=== PATIENT | male | born 1970 | race Caucasian/White ===

== ENCOUNTER 2023-10-11 17:06 | Emergency (ER) | payer BC, SELFPAY ==
[2023-10-11] VITALS (23 sets, daily range): BP systolic 106–156; BP diastolic 65–106; PULSE 65–100; TEMP 36.7; O2SAT 95–98; BMI 32.5
--- NOTE | 2023-10-11 17:34 | ECG_ITS ---
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
--- NOTE | 2023-10-11 17:36 | ED.ABDPAIN1 ---
HPI - Abdominal Pain General Chief Complaint: Abdominal Pain Stated Complaint: ABD PAIN Time Seen by Provider: 10/11/23 17:30 Source: patient Mode of arrival: walk-in History of Present Illness HPI narrative: Patient presenting with a 24 hours history of right-sided abdominal pain not radiating associated with no vomiting in the moment he did have some nausea at home he also mentioned that he had some bloody stool but he thinks that mostly secondary to his hemorrhoids and he had constipation yesterday although he have diarrhea today. The patient have no fever or chills although he is feeling a little sweaty right now, and the patient denies any chest pain any back pain and any radiation of the pain that he is having The patient have a history of kidney stone that he was evaluated for a few years ago. Related Data Allergies Allergy/AdvReac Type Severity Reaction Status Date / Time No Known Drug Allergies Allergy Verified 10/11/23 17:15 Review of Systems ROS Status of ROS 10 or more systems reviewed and unremarkable except as noted in history and below Exam Narrative Exam Narrative: Nurses notes and vital signs reviewed and patient is not hypoxic. General: Well-appearing and in no apparent distress. Skin: Warm, dry, no pallor noted. No rash. Head: Normocephalic, atraumatic. Neck: Supple, non-tender. Eye: Pupils are equal, round and EOMI. No scleral icterus. Ears, Nose, Mouth, and Throat: TM are clear, no nasal mucosal hypertrophy. Oral mucosa is moist, no posterior oropharynx erythema, uvula is mid-line Cardiovascular: Regular Rate and Rhythm without murmur, gallop or rub. Respiratory: No accessory muscle use or respiratory distress. Lungs are clear to auscultation, no wheezing, rales or rhonchi Chest Wall: no tenderness Back: No midline thoracic or lumbar vertebral tenderness. No CVA tenderness Musculoskeletal: normal ROM, no calf or popliteal tenderness, no lower extremity edema/swelling GI: The abdomen is distended and the patient have tenderness on the right side of the abdomen upper and lower with no positive [place] Neurological: A&O x4. No cranial nerve dysfunction observed. No truncal ataxia. Moves all extremities. Sensation intact. Psychiatric: Cooperative and interactive. Normal mood and affect. Constitutional Vital Signs, click to edit/add: Last Vital Signs Temp 98.0 F 10/11/23 17:12 Pulse 65 10/11/23 18:20 Resp 20 10/11/23 18:15 BP 118/73 10/11/23 18:15 Pulse Ox 96 10/11/23 18:20 O2 Del Method Room Air 10/11/23 17:12 Course Vital Signs Vital signs: Vital Signs Temperature 98.0 F 10/11/23 17:12 Pulse Rate 84 10/11/23 17:12 Respiratory Rate 22 H 10/11/23 17:12 Blood Pressure 152/106 H 10/11/23 17:12 Pulse Oximetry 96 10/11/23 17:12 Oxygen Delivery Method Room Air 10/11/23 17:12 Temperature 98.0 F 10/11/23 17:12 Pulse Rate 65 10/11/23 18:20 Respiratory Rate 20 10/11/23 18:15 Blood Pressure 118/73 10/11/23 18:15 Pulse Oximetry 96 10/11/23 18:20 Oxygen Delivery Method Room Air 10/11/23 17:12 MDM - Abdominal Pain MDM Narrative Medical decision making narrative: The patient EKG showing sinus rhythm no ST elevation or depression CBC and chemistry showed no acute pathology with a negative troponin CAT scan of the abdomen is pending the patient was treated with a Toradol and Zofran as well as Pepcid The patient care will be transferred to Dr. Dia for evaluation of CT abd and UA Lab Data Labs: Lab Results 10/11/23 Range/Units 17:32 WBC 8.8 (4.0-11.0) 10^3/uL RBC 5.06 (4.70-6.10) 10^6/uL Hgb 15.1 (14.0-18.0) g/dL Hct 44.7 (42.0-54.0) % MCV 88.3 (80.0-94.0) fL MCH 29.8 (25.9-34.0) pg MCHC 33.8 (29.9-35.2) g/dL RDW 12.7 (11.0-15.0) % Plt Count 250 (150-450) 10^3/uL MPV 11.0 (9.5-13.5) fL Neut % (Auto) 61.1 (43.0-75.0) % Lymph % (Auto) 28.2 (20.5-60.0) % [place]ukes % (Auto) 8.1 (1.7-12.0) % Eos % (Auto) 1.8 (0.9-7.0) % Baso % (Auto) 0.6 (0.2-2.0) % Neut # (Auto) 5.4 (1.4-6.5) 10^3/uL Lymph # (Auto) 2.5 (1.2-3.8) 10^3/uL Dukes # (Auto) 0.7 (0.3-0.8) 10^3/uL Eos # (Auto) 0.2 (0.0-0.7) 10^3/uL Baso # (Auto) 0.1 (0.0-0.1) 10^3/uL Abs Immat Gran (auto) 0.02 (0.00-0.03) 10^3/uL Imm/Tot Granulo (auto) 0.2 (0.0-0.5) % PT 10.7 (9.0-11.6) sec INR 1.01 Sodium 140 (136-145) mmol/L Potassium 4.3 (3.5-5.1) mmol/L Chloride 103 (98-107) mmol/L Carbon Dioxide 27.6 (21.0-32.0) mmol/L Anion Gap 13.7 BUN 19.0 H (7.0-18.0) mg/dL Creatinine 1.21 (0.70-1.30) mg/dL Est GFR ( Amer) >60 (>=60) Est GFR (Non-Af Amer) >60 (>=60) BUN/Creatinine Ratio 15.7 Glucose 227 H (74-106) mg/dL Calcium 10.2 H (8.5-10.1) mg/dL Total Bilirubin 0.4 (0.2-1.0) mg/dL AST 32 (15-37) U/L ALT 62 (16-63) U/L Alkaline Phosphatase 91 (46-116) U/L Troponin I High Sens 4.8 (4.0-76.1) pg/mL Total Protein 7.2 (6.4-8.2) g/dL Albumin 4.2 (3.4-5.0) g/dL Globulin 3.0 g/dL Albumin/Globulin Ratio 1.4 Lipase 62.0 (16.0-77.0) U/L Discharge Plan Discharge Patient Disposition: Still a Patient
[2023-10-11 17:43] LABS: Basophils Absolute Auto 0.1 10^3/uL (0.0-0.1); Basophils Percent Auto 0.6 % (0.2-2.0); Eosinophils Absolute Auto 0.2 10^3/uL (0.0-0.7); Eosinophils Percent Auto 1.8 % (0.9-7.0); Hematocrit 44.7 % (42.0-54.0); Hemoglobin 15.1 g/dL (14.0-18.0); Immature Granulocytes Abs Auto 0.02 10^3/uL (0.00-0.03); Immature Granulocytes Pct Auto 0.2 % (0.0-0.5); Lymphocytes Absolute Auto 2.5 10^3/uL (1.2-3.8); Lymphocytes Percent Auto 28.2 % (20.5-60.0); Mean Corpuscular HGB Conc 33.8 g/dL (29.9-35.2); Mean Corpuscular Hemoglobin 29.8 pg (25.9-34.0); Mean Corpuscular Volume 88.3 fL (80.0-94.0); Monocytes Absolute Auto 0.7 10^3/uL (0.3-0.8); Monocytes Percent Auto 8.1 % (1.7-12.0); Neutrophils Absolute Auto 5.4 10^3/uL (1.4-6.5); Neutrophils Percent Auto 61.1 % (43.0-75.0); Platelet Count 250 10^3/uL (150-450); Red Blood Count 5.06 10^6/uL (4.70-6.10); Red Cell Distribution Width 12.7 % (11.0-15.0); White Blood Count 8.8 10^3/uL (4.0-11.0)
[2023-10-11] MEDS: FAMOTIDINE/PF 20 MG/2 ML VIAL IV (17:53)
[2023-10-11] MEDS: KETOROLAC TROMETHAMINE 30 MG/ML VIAL 15 MG IVP (17:53)
[2023-10-11] MEDS: 0.9 % SODIUM CHLORIDE 1,000 ML 1000 ML IV (17:53)
[2023-10-11] MEDS: ONDANSETRON PF 4 MG/2 ML VIAL IV (17:53)
[2023-10-11 18:03] LABS: INR 1.01; Prothrombin Time 10.7 sec (9.0-11.6)
[2023-10-11 18:13] LABS: Alanine Aminotransferase 62 U/L (16-63); Albumin Globulin Ratio 1.4; Albumin Level 4.2 g/dL (3.4-5.0); Alkaline Phosphatase 91 U/L (46-116); Anion Gap 13.7; Aspartate Amino Transferase 32 U/L (15-37); BUN Creatinine Ratio 15.7; Bilirubin Total 0.4 mg/dL (0.2-1.0); Calcium 10.2 mg/dL (8.5-10.1); Carbon Dioxide 27.6 mmol/L (21.0-32.0); Chloride 103 mmol/L (98-107); Estimated GFR (African America >60 (>=60); Estimated GFR (Non-African Ame >60 (>=60); Glucose 227 mg/dL (74-106); Potassium 4.3 mmol/L (3.5-5.1); Sodium 140 mmol/L (136-145); Total Protein 7.2 g/dL (6.4-8.2); Troponin I High Sensitivity 4.8 pg/mL (4.0-76.1)
--- NOTE | 2023-10-11 18:27 | CT_ITS ---
The [address] [address] Patient Name: JUDI NUNEZ MRN: [id number] date: 1970 Sex: M Assigned Patient Location: ER Current Patient Location: Accession/Order Number: [id number] Exam Date: 10/11/2023 19:22 Report Date: 10/11/2023 20:23 At the request of: EDWIGE PERALTA Procedure: CT abdomen pelvis w con CT OF THE ABDOMEN AND PELVIS WITH CONTRAST: 10/11/2023 7:22 PM EDT CLINICAL HISTORY: Right lower quadrant abdominal pain. COMPARISONS: None. TECHNIQUE: Thin section axial CT images were obtained from the lung bases to the pubis symphysis. This CT exam was performed using one or more of the following dose reduction techniques: Automated exposure control, adjustment of the mA and/or kV according to patient size, or use of iterative reconstruction technique. Thin section coronal and sagittal images were reconstructed from the axial data set. All images were reviewed and interpreted. CONTRAST: Intravenous contrast was administered. Type and amount is documented at the local institution. FINDINGS: LUNG BASES: No consolidation or pleural fluid. LIVER: Severe diffuse hepatic steatosis. No liver mass or cyst. Normal portal vein enhancement. GALLBLADDER: Normal. BILIARY TREE: No ductal dilatation. PANCREAS: Normal. SPLEEN: Normal. ADRENALS: Normal. RIGHT KIDNEY AND URETER: There is a acutely retained distal right ureteral calculus measuring 2 mm located approximately 8 mm from distal right ureteral vesicle junction. This is causing mild acute upstream right hydroureteronephrosis. No right perinephric stranding or edema. Slight delayed right nephrogram. Additional nonobstructing calculi lower pole calyces right kidney, 2 or 3 noted each measuring 2 mm. No other calculi in right kidney. No right renal mass or cyst. LEFT KIDNEY AND URETER: No left hydronephrosis. There are several scattered nonobstructing calculi in calyces of left kidney, too noted 1 anterior mid pole calyx measuring 3 mm and 1 lower pole calyx measuring 2 mm. No left ureteral calculi. Tiny parenchymal simple cyst lower pole left kidney measuring 3 to 4 mm. Tiny upper pole 3 to 4 mm simple cyst left kidney measuring 4 mm. Left kidney otherwise negative. Next URINARY BLADDER: Grossly unremarkable. PELVIC STRUCTURES: Unremarkable. BOWEL: No evidence of obstruction, gross mass, or inflammatory change. There is no significant diverticulosis. There is no evidence of diverticulitis. APPENDIX: No active disease with normal appendix. LYMPH NODES: No pathologically enlarged lymph nodes identified. PERITONEUM: No intraperitoneal free air. No free intraperitoneal fluid. MESENTERY: Unremarkable. RETROPERITONEUM: The retroperitoneum is unremarkable. AORTA: Normal in caliber. BODY WALL: No body wall mass. OSSEOUS STRUCTURES: No destructive osseous lesion or displaced fracture. CT/CT abdomen pelvis w con IMPRESSION: 1. Acute right-sided obstructive uropathy with mild right hydronephrosis secondary to small 2 mm distal right ureteral calculus as discussed. 2. Several nonobstructing calculi are seen in calyces of both kidneys as well. See above. 3. Severe hepatic steatosis. Electronically authenticated by: MICHAEL MARQUEZ Date: 10/11/2023 20:23
[2023-10-11 19:24] LABS: Bilirubin Urine NEGATIVE (NEGATIVE); Blood Urine LARGE (NEGATIVE); Clarity Urine CLEAR (CLEAR); Color Urine LT. YELLOW (YELLOW); Glucose Urine UA NEGATIVE (NEGATIVE); Ketones Urine NEGATIVE (NEGATIVE); Leukocyte Esterase Urine NEGATIVE (NEGATIVE); Nitrite Urine NEGATIVE (NEGATIVE); Protein Urine NEGATIVE (NEG/TRACE); Specific Gravity Urine >=1.030 (1.005-1.025); Urobilinogen Urine 0.2 EU/dL (0.2-1.0); pH Urine 5.5 (5.0-9.0)
[2023-10-11 19:26] LABS: Urine Microscopic Indicated YES
[2023-10-11 19:42] LABS: Bacteria Urine NONE SEEN #/HPF (NONE SEEN); Mucus Urine NONE SEEN (NONE SEEN); Squamous Epithelial Cell Urine NONE SEEN #/LPF (NONE/RARE); WBC Urine NONE SEEN #/HPF (NONE SEEN)
[2023-10-11 19:43] LABS: Cast Seen? NONE SEEN #/LPF (NONE SEEN); Crystals Seen? None Seen #/HPF (None Seen); Urine Culture Indicated NO
--- NOTE | 2023-10-11 20:39 | ED_ITS ---
HPI - Abdominal Pain General Chief Complaint: Abdominal Pain Stated Complaint: ABD PAIN Time Seen by Provider: 10/11/23 17:30 Source: patient Mode of arrival: walk-in History of Present Illness HPI narrative: The patient was initially seen by Dr. Silva and signed out to me after discussing the case with her thoroughly. Please see her full history and physical exam. Related Data Previous Rx's ?Medication ?Instructions ?Recorded hydrocodone 5 mg-acetaminophen 325 1 tab PO Q6H PRN pain 5 days #20 10/11/23 mg tablet tabs tamsulosin 0.4 mg capsule (Flomax) 0.4 mg PO DAILY #7 caps 10/11/23 Allergies Allergy/AdvReac Type Severity Reaction Status Date / Time No Known Drug Allergies Allergy Verified 10/11/23 17:15 Exam Constitutional Vital Signs, click to edit/add: Last Vital Signs Temp 98.0 F 10/11/23 17:12 Pulse 87 10/11/23 20:15 Resp 16 10/11/23 18:47 BP 129/88 10/11/23 20:15 Pulse Ox 95 10/11/23 20:15 O2 Del Method Room Air 10/11/23 17:12 Course Vital Signs Vital signs: Vital Signs Temperature 98.0 F 10/11/23 17:12 Pulse Rate 84 10/11/23 17:12 Respiratory Rate 22 H 10/11/23 17:12 Blood Pressure 152/106 H 10/11/23 17:12 Pulse Oximetry 96 10/11/23 17:12 Oxygen Delivery Method Room Air 10/11/23 17:12 Temperature 98.0 F 10/11/23 17:12 Pulse Rate 87 10/11/23 20:15 Respiratory Rate 16 10/11/23 18:47 Blood Pressure 129/88 10/11/23 20:15 Pulse Oximetry 95 10/11/23 20:15 Oxygen Delivery Method Room Air 10/11/23 17:12 MDM - Abdominal Pain MDM Narrative Medical decision making narrative: Distal 2 mm stone is identified on the CAT scan. He will follow-up with urology and was provided pain medication and Flomax. Treatment diagnosis and follow-up were discussed with the patient. Lab Data Attestation: I reviewed the patient's lab results. Labs: Lab Results 10/11/23 10/11/23 Range/Units 17:32 19:18 WBC 8.8 (4.0-11.0) 10^3/uL RBC 5.06 (4.70-6.10) 10^6/uL Hgb 15.1 (14.0-18.0) g/dL Hct 44.7 (42.0-54.0) % MCV 88.3 (80.0-94.0) fL MCH 29.8 (25.9-34.0) pg MCHC 33.8 (29.9-35.2) g/dL RDW 12.7 (11.0-15.0) % Plt Count 250 (150-450) 10^3/uL MPV 11.0 (9.5-13.5) fL Neut % (Auto) 61.1 (43.0-75.0) % Lymph % (Auto) 28.2 (20.5-60.0) % [place] % (Auto) 8.1 (1.7-12.0) % Eos % (Auto) 1.8 (0.9-7.0) % Baso % (Auto) 0.6 (0.2-2.0) % Neut # (Auto) 5.4 (1.4-6.5) 10^3/uL Lymph # (Auto) 2.5 (1.2-3.8) 10^3/uL [place] # (Auto) 0.7 (0.3-0.8) 10^3/uL Eos # (Auto) 0.2 (0.0-0.7) 10^3/uL Baso # (Auto) 0.1 (0.0-0.1) 10^3/uL Abs Immat Gran (auto) 0.02 (0.00-0.03) 10^3/uL Imm/Tot Granulo (auto) 0.2 (0.0-0.5) % PT 10.7 (9.0-11.6) sec INR 1.01 Sodium 140 (136-145) mmol/L Potassium 4.3 (3.5-5.1) mmol/L Chloride 103 (98-107) mmol/L Carbon Dioxide 27.6 (21.0-32.0) mmol/L Anion Gap 13.7 BUN 19.0 H (7.0-18.0) mg/dL Creatinine 1.21 (0.70-1.30) mg/dL Est GFR ( Amer) >60 (>=60) Est GFR (Non-Af Amer) >60 (>=60) BUN/Creatinine Ratio 15.7 Glucose 227 H (74-106) mg/dL Calcium 10.2 H (8.5-10.1) mg/dL Total Bilirubin 0.4 (0.2-1.0) mg/dL AST 32 (15-37) U/L ALT 62 (16-63) U/L Alkaline Phosphatase 91 (46-116) U/L Troponin I High Sens 4.8 (4.0-76.1) pg/mL Total Protein 7.2 (6.4-8.2) g/dL Albumin 4.2 (3.4-5.0) g/dL Globulin 3.0 g/dL Albumin/Globulin Ratio 1.4 Lipase 62.0 (16.0-77.0) U/L Urine Color Lt. yellow (YELLOW) Urine Clarity Clear (CLEAR) Urine pH 5.5 (5.0-9.0) Ur Specific [place] >=1.030 A (1.005-1.025) Urine Protein Negative (NEG/TRACE) mg/dL Urine Glucose (UA) Negative (NEGATIVE) mg/dL Urine Ketones Negative (NEGATIVE) mg/dL Urine Occult Blood Large A (NEGATIVE) Urine Nitrite Negative (NEGATIVE) Urine Bilirubin Negative (NEGATIVE) Urine Urobilinogen 0.2 (0.2-1.0) EU/dL Ur Leukocyte Esterase Negative (NEGATIVE) Urine RBC 2-5 A (0-2) #/HPF Urine WBC None seen (NONE SEEN) #/HPF Ur Squamous Epith Cells None seen (NONE/RARE) #/LPF Urine Crystals None seen (None Seen) #/HPF Urine Bacteria None seen (NONE SEEN) #/HPF Urine Casts None seen (NONE SEEN) #/LPF Urine Mucus None seen (NONE SEEN) Ur Culture Indicated? No Imaging Data CT scan - abdomen: Radiologist's impression: ITS Impressions Abdomen/Pelvis CT 10/11/23 18:27 IMPRESSION: 1. Acute right-sided obstructive uropathy with mild right hydronephrosis secondary to small 2 mm distal right ureteral calculus as discussed. 2. Several nonobstructing calculi are seen in calyces of both kidneys as well. See above. 3. Severe hepatic steatosis. Electronically authenticated by: MICHAEL MARQUEZ Date: 10/11/2023 20:23 Discharge Plan Discharge Stand Alone Forms: Portal Instructions Chief Complaint: Abdominal Pain Clinical Impression: Calculus of kidney Patient Disposition: Home, Self-Care Time of Disposition Decision: 20:37 Condition: Good Mode of Transportation: Private Vehicle Prescriptions / Home Meds: New tamsulosin [Flomax] 0.4 mg capsule 0.4 mg PO DAILY Qty: 7 0RF hydrocodone-acetaminophen 5-325 mg tablet 1 tab PO Q6H PRN (Reason: pain) 5 Days Qty: 20 0RF Print Language: Malian Instructions: Kidney Stones (ED), How to Strain Your Urine (ED) Additional Instructions: Follow-up with Dr. Trujillo Referrals: Physician,Non-Staff, [Physician] - 1 week Sahil Trujillo MD [Physician] - 1 week
[2023-10-11] MEDS: TAMSULOSIN HCL 0.4 MG CAPSULE 0.400000000000000022 MG PO (20:46)
[2023-10-11] MEDS: HYDROCODONE/ACET 5-325 MG TABLET 1 TAB PO (20:46)
== END 2023-10-11 20:52 | disposition home or self-care (01) ==
PROVIDERS: Emergency Medicine; Emergency Provider Emergency Medicine; Family Provider Family Medicine; PCP Family Medicine
DX: N20.0 Calculus of kidney (principal); K59.00 Constipation, unspecified
CPT/HCPCS: 36415; 74177; 80053; 81001; 83690; 84484; 85025; 85610; 93005; 96374; 96375; 99285; Q9967

== ENCOUNTER 2023-10-12 21:36 | Emergency (ER) | payer BC, SELFPAY ==
[2023-10-12 21:40] VITALS: BP 140/90; PULSE 96; TEMP 36.8; O2SAT 96; BMI 33.5
--- NOTE | 2023-10-12 21:58 | ED.ABDPAIN1 ---
HPI - Abdominal Pain General Chief Complaint: Urogenital-Male Stated Complaint: lower r abdominal pain Time Seen by Provider: 10/12/23 21:45 Source: patient Mode of arrival: walk-in Limitations: no limitations History of Present Illness HPI narrative: patient seen last PM for abdominal pain and found to have a 2mm right distal ureter stone with hydronephrosis. Now returns complaining of pain and abdominal bloating. No fever or urinary symptoms Related Data Previous Rx's ?Medication ?Instructions ?Recorded hydrocodone 5 mg-acetaminophen 325 1 tab PO Q6H PRN pain 5 days #20 10/11/23 mg tablet tabs tamsulosin 0.4 mg capsule (Flomax) 0.4 mg PO DAILY #7 caps 10/11/23 Allergies Allergy/AdvReac Type Severity Reaction Status Date / Time No Known Drug Allergies Allergy Verified 10/11/23 17:15 Review of Systems ROS Status of ROS 10 or more systems reviewed and unremarkable except as noted in history and below Exam Constitutional Vital Signs, click to edit/add: Last Vital Signs Temp 98.2 F 10/12/23 21:40 Pulse 96 H 10/12/23 21:40 Resp 18 10/12/23 21:40 BP 140/90 10/12/23 21:40 Pulse Ox 96 10/12/23 21:40 O2 Del Method Room Air 10/12/23 21:40 Common normals: no apparent distress (mild distress), oriented x3, healthy appearing, alert and well nourished [facility] Common normals: normocephalic and head/scalp atraumatic Respiratory Common normals: normal respiratory effort, no retractions and no use of accessory muscles Cardio Common normals: regular rate, regular rhythm, S1 normal heart sound and S2 normal heart sound GI Common normals: Normal to inspection, nondistended, normoactive bowel sounds present Other: distended but soft. mild RLQ tenderness Extremity Common normals: normal to inspection and full ROM Neuro Common normals: oriented x3 and moves all extremities Psych Appearance: grossly normal Course Vital Signs Vital signs: Vital Signs Temperature 98.2 F 10/12/23 21:40 Pulse Rate 96 H 10/12/23 21:40 Respiratory Rate 18 10/12/23 21:40 Blood Pressure 140/90 10/12/23 21:40 Pulse Oximetry 96 04/01/24 21:40 Oxygen Delivery Method Room Air 10/12/23 21:40 Temperature 98.2 F 10/12/23 21:40 Pulse Rate 96 H 10/12/23 21:40 Respiratory Rate 18 10/12/23 21:40 Blood Pressure 140/90 10/12/23 21:40 Pulse Oximetry 96 10/12/23 21:40 Oxygen Delivery Method Room Air 10/12/23 21:40 MDM - Abdominal Pain MDM Narrative Medical decision making narrative: patient seen yesterday for kidney stone. Returns today complaining of continued pain of his RLQ. xray with mod-large stool burden. labs demonstrate urine is not infected. Does have increased in creat that will need follow up. Patient informed. Given choice of enema or laxative and he chooses a laxative. Discharged home to follow up with urology and his family doctor Lab Data Labs: Lab Results 10/12/23 10/12/23 Range/Units 22:15 22:35 WBC 9.4 (4.0-11.0) 10^3/uL RBC 4.60 L (4.70-6.10) 10^6/uL Hgb 13.8 L (14.0-18.0) g/dL Hct 40.1 L (42.0-54.0) % MCV 87.2 (80.0-94.0) fL MCH 30.0 (25.9-34.0) pg MCHC 34.4 (29.9-35.2) g/dL RDW 12.4 (11.0-15.0) % Plt Count 178 (150-450) 10^3/uL MPV 10.6 (9.5-13.5) fL Neut % (Auto) 78.5 H (43.0-75.0) % Lymph % (Auto) 13.2 L (20.5-60.0) % Ada % (Auto) 7.2 (1.7-12.0) % Eos % (Auto) 0.5 L (0.9-7.0) % Baso % (Auto) 0.4 (0.2-2.0) % Neut # (Auto) 7.4 H (1.4-6.5) 10^3/uL Lymph # (Auto) 1.2 (1.2-3.8) 10^3/uL Ada # (Auto) 0.7 (0.3-0.8) 10^3/uL Eos # (Auto) 0.1 (0.0-0.7) 10^3/uL Baso # (Auto) 0.0 (0.0-0.1) 10^3/uL Abs Immat Gran (auto) 0.02 (0.00-0.03) 10^3/uL Imm/Tot Granulo (auto) 0.2 (0.0-0.5) % Sodium 135 L (136-145) mmol/L Potassium 4.3 (3.5-5.1) mmol/L Chloride 101 (98-107) mmol/L Carbon Dioxide 24.0 (21.0-32.0) mmol/L Anion Gap 14.3 BUN 17.0 (7.0-18.0) mg/dL Creatinine 1.71 H (0.70-1.30) mg/dL Est GFR ( Amer) 51 L (>=60) Est GFR (Non-Af Amer) 42 L (>=60) BUN/Creatinine Ratio 9.9 Glucose 241 H (74-106) mg/dL Lactate 1.5 (0.4-2.0) mmol/L Calcium 8.5 (8.5-10.1) mg/dL Total Bilirubin 0.7 (0.2-1.0) mg/dL AST 23 (15-37) U/L ALT 46 (16-63) U/L Alkaline Phosphatase 75 (46-116) U/L Troponin I High Sens <4.0 L (4.0-76.1) pg/mL Total Protein 6.7 (6.4-8.2) g/dL Albumin 3.8 (3.4-5.0) g/dL Globulin 2.9 g/dL Albumin/Globulin Ratio 1.3 Urine Color Lt. yellow (YELLOW) Urine Clarity Clear (CLEAR) Urine pH 6.0 (5.0-9.0) Ur Specific [place] 1.020 (1.005-1.025) Urine Protein Negative (NEG/TRACE) mg/dL Urine Glucose (UA) 500 A (NEGATIVE) mg/dL Urine Ketones Negative (NEGATIVE) mg/dL Urine Occult Blood Negative (NEGATIVE) Urine Nitrite Negative (NEGATIVE) Urine Bilirubin Negative (NEGATIVE) Urine Urobilinogen 0.2 (0.2-1.0) EU/dL Ur Leukocyte Esterase Negative (NEGATIVE) Imaging Data Abdominal x-ray: Radiologist's impression: ITS Impressions Abdomen X-Ray 10/12/23 22:01 IMPRESSION: 2 mm stone of the right distal ureter appears similar to the prior CT scan. Electronically authenticated by: DION SCHRADER Date: 10/12/2023 22:43 Discharge Plan Discharge Stand Alone Forms: Portal Instructions Chief Complaint: Urogenital-Male Clinical Impression: Calculus of kidney, Constipation Patient Disposition: Home, Self-Care Prescriptions / Home Meds: No Action tamsulosin [Flomax] 0.4 mg capsule 0.4 mg PO DAILY Qty: 7 0RF hydrocodone-acetaminophen 5-325 mg tablet 1 tab PO Q6H PRN (Reason: pain) 5 Days Qty: 20 0RF Print Language: Iraqi Instructions: Constipation (DC), Kidney Stones (ED) Additional Instructions: drink plenty of fluids. Follow up with your doctor to have your kidney lab test rechecked Referrals: YURIDIA GARCIA [Primary Care Provider] - 1 week Discharge Date/Time: 10/13/23 00:05
--- NOTE | 2023-10-12 22:01 | XR_ITS ---
The [address] [address] Patient Name: JUDI NUNEZ MRN: [id number] date: 1970 Sex: M Assigned Patient Location: ER Current Patient Location: ER Accession/Order Number: [id number] Exam Date: 10/12/2023 22:15 Report Date: 10/12/2023 22:43 At the request of: BRIANNA KRISHNA Procedure: XR abdomen min 2V EXAM: XR abdomen min 2V TECHNIQUE: Supine and upright views of the abdomen HISTORY: abdominal pain COMPARISON: CT scan 10/11/2023 FINDINGS: No bowel obstruction. No free spinal air. Moderate retained stool within the colon. 2 mm calcification of the right hemipelvis corresponding to the stone seen on prior CT scan within the right distal ureter. There is residual opacification of the right ureter which is mildly dilated. Multiple punctate nonobstructing calcifications of the left kidney. XR/XR abdomen min 2V IMPRESSION: 2 mm stone of the right distal ureter appears similar to the prior CT scan. Electronically authenticated by: DION SCHRADER Date: 10/12/2023 22:43
[2023-10-12 22:24] LABS: Basophils Percent Auto 0.4 % (0.2-2.0); Eosinophils Absolute Auto 0.1 10^3/uL (0.0-0.7); Eosinophils Percent Auto 0.5 % (0.9-7.0); Hematocrit 40.1 % (42.0-54.0); Hemoglobin 13.8 g/dL (14.0-18.0); Immature Granulocytes Abs Auto 0.02 10^3/uL (0.00-0.03); Immature Granulocytes Pct Auto 0.2 % (0.0-0.5); Lymphocytes Absolute Auto 1.2 10^3/uL (1.2-3.8); Lymphocytes Percent Auto 13.2 % (20.5-60.0); Mean Corpuscular HGB Conc 34.4 g/dL (29.9-35.2); Mean Corpuscular Volume 87.2 fL (80.0-94.0); Mean Platelet Volume 10.6 fL (9.5-13.5); Monocytes Absolute Auto 0.7 10^3/uL (0.3-0.8); Monocytes Percent Auto 7.2 % (1.7-12.0); Neutrophils Absolute Auto 7.4 10^3/uL (1.4-6.5); Neutrophils Percent Auto 78.5 % (43.0-75.0); Platelet Count 178 10^3/uL (150-450); Red Cell Distribution Width 12.4 % (11.0-15.0); White Blood Count 9.4 10^3/uL (4.0-11.0)
[2023-10-12] MEDS: 0.9 % SODIUM CHLORIDE 1,000 ML 999 ML IV (22:29)
[2023-10-12] MEDS: KETOROLAC TROMETHAMINE 30 MG/ML VIAL IM (22:30)
[2023-10-12] MEDS: ORPHENADRINE 60 MG/ 2 ML VIAL IV (22:30)
[2023-10-12 22:44] LABS: Lactate/Lactic Acid 1.5 mmol/L (0.4-2.0)
[2023-10-12 22:51] LABS: Alanine Aminotransferase 46 U/L (16-63); Albumin Globulin Ratio 1.3; Albumin Level 3.8 g/dL (3.4-5.0); Alkaline Phosphatase 75 U/L (46-116); Anion Gap 14.3; Aspartate Amino Transferase 23 U/L (15-37); BUN Creatinine Ratio 9.9; Bilirubin Total 0.7 mg/dL (0.2-1.0); Calcium 8.5 mg/dL (8.5-10.1); Chloride 101 mmol/L (98-107); Estimated GFR (African America 51 (>=60); Estimated GFR (Non-African Ame 42 (>=60); Globulin 2.9 g/dL; Glucose 241 mg/dL (74-106); Potassium 4.3 mmol/L (3.5-5.1); Sodium 135 mmol/L (136-145); Total Protein 6.7 g/dL (6.4-8.2); Troponin I High Sensitivity <4.0 pg/mL (4.0-76.1)
[2023-10-12 22:52] LABS: Bilirubin Urine NEGATIVE (NEGATIVE); Blood Urine NEGATIVE (NEGATIVE); Clarity Urine CLEAR (CLEAR); Color Urine LT. YELLOW (YELLOW); Glucose Urine UA 500 mg/dL (NEGATIVE); Ketones Urine NEGATIVE (NEGATIVE); Leukocyte Esterase Urine NEGATIVE (NEGATIVE); Nitrite Urine NEGATIVE (NEGATIVE); Protein Urine NEGATIVE (NEG/TRACE); Urobilinogen Urine 0.2 EU/dL (0.2-1.0)
[2023-10-12 22:53] LABS: Urine Microscopic Indicated NO
[2023-10-12] MEDS: MAGNESIUM CITRATE 296 ML SOLUTION PO (23:51)
== END 2023-10-13 00:05 | disposition home or self-care (01) ==
PROVIDERS: Emergency Provider Internal Medicine; Family Provider Family Medicine; PCP Family Medicine
DX: N20.1 Calculus of ureter (principal); K59.00 Constipation, unspecified
CPT/HCPCS: 36415; 74019; 80053; 81003; 83605; 84484; 85025; 96372; 96374; 99285